=== PATIENT | female | born 1955 | race African-American/Black ===

== ENCOUNTER 2018-01-10 08:53 | Inpatient (IN) | payer OTHER ==
[2018-01-10 10:08] VITALS: BMI 18.3
--- NOTE | 2018-01-10 12:47 | HP ---
CIWA Score - CIWA Score Nausea/Vomitin Muscle Tremors: 3 Anxiety: 3 Agitation: 3 Paroxysmal Sweats: 1-Minimal Palms Moist Orientation: 3-Disoriented Date>2 days Tacttile Disturbances: 1-Very Mild Itch/Numbness Auditory Disturbances: 1-Very Mild Visual Disturbances: 0-None Headache: 2-Mild CIWA-Ar Total Score: 20 Admission ROS BHS - HPI Chief Complaint: i need help to stop drinking alcohol and cocaine Allergies/Adverse Reactions: Allergies Allergy/AdvReac Type Severity Reaction Status Date / Time penicillin V [Penicillin V] Allergy Unknown Rash Verified 01/10/18 09:51 History of Present Illness: this 62 years female with alcohol and cocaine dependence,seeking detox, withdrawal symptom,last detox 06/02/16 to 06/06/16 seen at [place] last night injury to left elbow with old scab seen at [facility] type 2 dm diet control hepatitis c bipolar disorder nicotine dependence longest sobriety 2 months Exam Limitations: No Limitations - Ebola screening Have you traveled outside of the country in the last 21 days: No (N) Have you had contact with anyone from an Ebola affected area: No Have you been sick,other than usual withdrawal symptoms: No Do you have a fever: No - Review of Systems Constitutional: Loss of Appetite, Malaise, Night Sweats, Changes in sleep, Weakness, Unintentional Wgt. Loss EENT: reports: Nose Congestion Respiratory: reports: No Symptoms reported Cardiac: reports: No Symptoms Reported GI: reports: Diarrhea, Nausea, Vomiting, Abdominal cramping : reports: No Symptoms Reported Musculoskeletal: reports: Back Pain, Muscle Pain Integumentary: reports: Dryness Neuro: reports: Headache, Tremors Endocrine: reports: No Symptoms Reported Hematology: reports: No Symptoms Reported Psychiatric: reports: No Sypmtoms Reported, Judgement Intact, Mood/Affect Appropiate, Orientated x3 (bipolar disorder) Patient History - Patient Medical History Hx Anemia: No Hx Asthma: Yes (Pt is on MDI) Hx Chronic Obstructive Pulmonary Disease (COPD): No Hx Cancer: No Hx Cardiac Disorders: No Hx Congestive Heart Failure: No Hx Hypertension: No Hx Hypercholesterolemia: No Hx Pacemaker: No HX Cerebrovascular Accident: No Hx Seizures: Yes (SEIZURE HISTORY RELATED TO ALCOHOL last 12/20/17) Hx Dementia: No Hx Diabetes: Yes (PATIENT TAKES INSULIN) Hx Gastrointestinal Disorders: No Hx Liver Disease: Yes Hx Genitourinary Disorders: No Hx Sexually Transmitted Disorders: Yes (gonorrhea) Hx Renal Disease (ESRD): No Hx Thyroid Disease: No Hx Human Immunodeficiency Virus (HIV): No Hx Hepatitis C: Yes (no treatment) Hx Depression: Yes Hx Suicide Attempt: No Hx Bipolar Disorder: Yes (on haldol injectio once a month) Hx Schizophrenia: No Other Medical History: no suicidal,no homicidal - Patient Surgical History Past Surgical History: Yes Hx Neurologic Surgery: No Hx Cataract Extraction: No Hx Cardiac Surgery: No Hx Lung Surgery: No Hx Breast Surgery: No Hx Breast Biopsy: No Hx Abdominal Surgery: Yes (TOTAL HYSTERECTOMY IN 1990 for fibroid) Hx Appendectomy: No Hx Cholecystectomy: No Hx Genitourinary Surgery: No Hx Section: No Hx Orthopedic Surgery: No Hx Hysterectomy: Yes Other Surgical History: TONSILLECTOMY at age 22 Anesthesia Reaction: No - PPD History Previous Implant?: Yes Documented Results: Negative w/proof Implanted On Prior [facility] Admission?: Yes Date: 02/29/16 Results: 0 MM PPD to be Administered?: Yes - Reproductive History Patient : No - Smoking Cessation Smoking history: Current every day smoker Have you smoked in the past 12 months: Yes Aproximately how many cigarettes per day: 20 Hx Chewing Tobacco Use: No Initiated information on smoking cessation: Yes 'Breaking Loose' booklet given: 01/10/18 - Substance & Tx. History Hx Alcohol Use: Yes Hx Substance Use: Yes Substance Use Type: Alcohol, Cocaine Hx Substance Use Treatment: Yes ([facility] 06/02/16 to 06/06/16) - Substances Abused Alcohol Route: Oral Frequency: Daily Amount used: 3 cans (24 ozs) beer Age of first use: 21 Date of Last Use: 01/10/18 Crack Route: Smoking Frequency: 1-2 times per week Amount used: $30 Age of first use: 24 Date of Last Use: 12/27/17 Family Disease History - Family Disease History Family Disease History: Other: Father (never met), Mother (alcohol ), Sister () Admission Physical Exam BHS - Vital Signs Vital Signs: Vital Signs - 24 hr 01/10/18 09:43 Temperature 97.1 F L Pulse Rate 79 Respiratory 16 Rate Blood Pressure 95/72 - Physical General Appearance: Yes: Moderate Distress, Tremorous, Irritable, Sweating, Anxious HEENTM: Yes: Normal ENT Inspection, TONIA, Pharynx Normal Respiratory: Yes: Lungs Clear, Normal Breath Sounds, No Respiratory Distress ( history of asthma) Neck: Yes: Within Normal Limits, Supple, Trachea in good position Breast: Yes: Breast Exam Deferred Cardiology: Yes: Within Normal Limits, S1, S2 Abdominal: Yes: Within Normal Limits, Normal Bowel Sounds, Non Tender, Soft, Surgical Scar Genitourinary: Yes: Within Normal Limits, Incontinient Back: Yes: Normal Inspection, Muscle Spasm Musculoskeletal: Yes: Back pain, Muscle Pain Extremities: Yes: Tremors Neurological: Yes: dat instructor II-XII NML intact, Fully Oriented, Alert, Motor Strength 5/5 Integumentary: Yes: Dry Lymphatic: Yes: Within Normal Limits - Diagnostic (1) Alcohol dependence with withdrawal Current Visit: No Status: Acute Qualifiers: Complication of substance-induced condition: uncomplicated Qualified Code(s ): F10.230 - Alcohol dependence with withdrawal, uncomplicated (2) Bipolar disorder Current Visit: Yes Status: Acute (3) Asthma Current Visit: No Status: Acute Qualifiers: Asthma severity: mild intermittent Asthma complication type: uncomplicated (4) Cocaine dependence Current Visit: No Status: Chronic (5) Incontinent of urine Current Visit: No Status: Chronic Qualifiers: Urinary Incontinence type: mixed stress and urge incontinence Qualified Code(s): N39.46 - Mixed incontinence (6) Frequent falls Current Visit: Yes Status: Acute (7) Weight loss Current Visit: Yes Status: Acute Cleared for Admission [facility] - Detox or Rehab [facility] Level of Care: Medically Managed Detox Regimen/Protocol: Librium [facility] Breath Alcohol Content Breath Alcohol Content: 0.154 Urine Pregancy Test - Result Urine Test Results: Negative- NO Line Present Urine Drug Screen - Results Drug Screen Negative: No Urine Drug Screen Results: BIJAN-Cocaine
[2018-01-10] MEDS ORDERED: MAGNESIUM CITRATE 300 ML BOTTLE PO PRN (13:00)
[2018-01-10] MEDS ORDERED: hydrOXYzine PAMOATE 25 MG CAPSULE (FP) PO PRN (13:00)
[2018-01-10] MEDS ORDERED: NICOTINE POLACRILEX 2 MG GUM BUC PRN (13:00)
[2018-01-10] MEDS ORDERED: MAGNESIUM HYDROX 2400MG/30ML ORAL SUSPENSION 30 ML CUP PO PRN (13:00)
[2018-01-10] MEDS ORDERED: IBUPROFEN 400 MG TABLET (FP) PO PRN (13:00)
[2018-01-10] MEDS ORDERED: MAG HYDROX/AL HYDROX/SIMETH 30 ML UNIT-DOSE CUP PO PRN (13:00)
[2018-01-10] MEDS ORDERED: guaiFENesin/D-METHORPHAN HB 10 ML UNIT-DOSE CUPS PO PRN (13:00)
[2018-01-10] MEDS ORDERED: MENTHOL/PHENOL 1 EACH UD MM PRN (13:00)
[2018-01-10] MEDS ORDERED: P-EPHED 60MG/TRIPROLIDI 2.5MG TABLET PO PRN (13:00)
[2018-01-10] MEDS ORDERED: ACETAMINOPHEN 325 MG TABLET (FP) PO PRN (13:00)
[2018-01-10] MEDS ORDERED: LOPERAMIDE HCL 2 MG CAPSULE PO PRN (13:00)
[2018-01-10] MEDS ORDERED: chlordiazePOXIDE HCL 25 MG CAPSULE PO PRN (13:00)
[2018-01-10] MEDS ORDERED: ALBUTEROL SO4 18 GM HFA INHALER IH PRN (13:04)
[2018-01-10] MEDS ORDERED: chlordiazePOXIDE HCL 25 MG CAPSULE PO ONE (13:50)
--- NOTE | 2018-01-10 14:43 | CONSULT ---
[facility] Psychiatric Consult - Data Date of interview: 01/10/18 Admission source: [facility] Identifying data: This is 62 years female, single, mother of three, living with relatives,on SSI, with history of Schizophrenia, Bipolar disorder, psychiatric hospitalization history, with alcohol and cocaine dependence,seeking detox reporting withdrawal symptoms. Substance Abuse History: this 62 years female with alcohol and cocaine dependence,seeking detox,withdrawal symptom,last detox 06/02/16 to 06/06/16. seen at [place] last night. injury to left elbow with old scab seen at [place]. type 2 dm diet control. hepatitis c. bipolar disorder. nicotine dependence. longest sobriety 2 months Medical History: Asthma, Weight loss, HepC+, head trauma history Psychiatric History: Patient reports to carry Bipolar Disorder, reports most recent psychiatric admission on about 5 years ago, reports currently stable on: Haldol Decanoate 100ml IM monthly. Haldol 5mg poqd. Trazodone 10-0mg po qhs. Reports last injection done in January 05 Physical/Sexual Abuse/Trauma History: Denies Additional Comment: Haldol Decanoate 100ml IM monthly. Haldol 5mg poqd. Trazodone 10-0mg po qhs Mental Status Exam - Mental Status Exam Alert and Oriented to: Place, Person Cognitive Function: Fair Patient Appearance: Unkempt Mood: Euthymic Affect: Inappropriate Patient Behavior: Cooperative Speech Pattern: Unclear Voice Loudness: Mildly Soft/Quiet Thought Process: Circumstantial Thought Disorder: Being Controlled Hallucinations: Denies Suicidal Ideation: Denies Homicidal Ideation: Denies Insight/Judgement: Fair Sleep: Difficulty falling asleep Appetite: Weight loss Muscle strength/Tone: Mild Hypotonicity Gait/Station: Deferred Additional Comments: Haldol Decanoate 100ml IM monthly. Haldol 5mg poqd. Trazodone 10-0mg po qhs Psychiatric Findings - Problem List ([place] 1, 2,3) (1) Bipolar disorder Current Visit: Yes Status: Acute (2) Weight loss Current Visit: Yes Status: Acute (3) Alcohol dependence Current Visit: No Status: Active (4) Alcohol dependence with withdrawal Current Visit: No Status: Acute Qualifiers: Complication of substance-induced condition: uncomplicated Qualified Code(s ): F10.230 - Alcohol dependence with withdrawal, uncomplicated (5) Cocaine dependence Current Visit: No Status: Chronic (6) Incontinent of urine Current Visit: No Status: Chronic Qualifiers: Urinary Incontinence type: mixed stress and urge incontinence Qualified Code(s): N39.46 - Mixed incontinence (7) Schizoaffective disorder Current Visit: No Status: Chronic - Initial Treatment Plan Initial Treatment Plan: Haldol Decanoate 100ml IM monthly last injection in January 05. Haldol 5mg poqd. Trazodone 10-0mg po qhs
[2018-01-10] MEDS: NICOTINE 21 MG/24 HOURS TOPICAL PATCH TD SCH (15:19)
[2018-01-10] MEDS: chlordiazePOXIDE HCL 25 MG CAPSULE PO SCH ×2 (17:27→22:22)
[2018-01-10] MEDS: HALOPERIDOL 5 MG TABLET (FP) PO SCH (17:28)
[2018-01-10 18:49] LABS: URINE APPEARANCE CLEAR; URINE BILIRUBIN NEGATIVE (<2.0 mg/dL); URINE BLOOD NEGATIVE (NEGATIVE); URINE COLOR LTYELLOW; URINE GLUCOSE (UA) NEGATIVE (NEGATIVE); URINE KETONE NEGATIVE (NEGATIVE); URINE NITRITE NEGATIVE (NEGATIVE); URINE PROTEIN NEGATIVE (NEGATIVE); URINE UROBILINOGEN NEGATIVE mg/dL (0.2-1.0)
[2018-01-10 19:03] LABS: URINE LEUK ESTERASE 1+ (NEGATIVE)
[2018-01-10 19:15] LABS: EPI CELLS RARE /HPF (FEW); URINE MUCUS RARE
[2018-01-10] MEDS ORDERED: MELATONIN 5 MG TABLETS PO PRN (22:00)
[2018-01-10] MEDS: traZODone HCL 100 MG TABLET (FP) PO SCH (22:22)
[2018-01-10] MEDS: THIAMINE HCL 100 MG TABLET (FP) PO SCH (22:22)
[2018-01-11] MEDS: chlordiazePOXIDE HCL 25 MG CAPSULE PO SCH ×4 (06:04→22:34)
[2018-01-11 10:15] LABS: HEMATOCRIT 37.3 % (32.4-45.2); HEMOGLOBIN 12.1 GM/dL (10.7-15.3); MCH 29.9 pg (25.7-33.7); MCHC 32.5 g/dl (32.0-36.0); MEAN CELL VOLUME 92.2 fl (80-96); MEAN PLT VOLUME 9.8 fl (7.5-11.1); PLATELET COUNT 251 K/MM3 (134-434); RBC 4.05 M/mm3 (3.60-5.2); RDW 14.6 % (11.6-15.6); WHITE BLOOD COUNT 7.8 K/mm3 (4.0-10.0)
--- NOTE | 2018-01-11 10:35 | PN ---
S CIWA - CIWA Score Nausea/Vomitin-Mild Nausea/No Vomiting Muscle Tremors: 4-Moderate,w/Arms Extend Anxiety: 4-Mod. Anxious/Guarded Agitation: 4-Moderately Restless Paroxysmal Sweats: 1-Minimal Palms Moist Orientation: 1-Uncertain about Date Tacttile Disturbances: 1-Very Mild Itch/Numbness Auditory Disturbances: 0-None Visual Disturbances: 0-None Headache: 0-None Present CIWA-Ar Total Score: 16 BHS Progress Note (SOAP) Subjective: sweat tremor trouble sleep at night anxiety restlessness Objective: 01/11/18 10:36 Vital Signs Temperature 98.2 F 01/11/18 09:19 Pulse Rate 91 H 01/11/18 09:19 Respiratory Rate 18 01/11/18 09:19 Blood Pressure 98/64 01/11/18 09:19 O2 Sat by Pulse Oximetry (%) Laboratory Last Values WBC 7.8 K/mm3 (4.0-10.0) 01/11/18 06:00 RBC 4.05 M/mm3 (3.60-5.2) 01/11/18 06:00 Hgb 12.1 GM/dL (10.7-15.3) 01/11/18 06:00 Hct 37.3 % (32.4-45.2) 01/11/18 06:00 MCV 92.2 fl (80-96) 01/11/18 06:00 MCH 29.9 pg (25.7-33.7) 01/11/18 06:00 MCHC 32.5 g/dl (32.0-36.0) 01/11/18 06:00 RDW 14.6 % (11.6-15.6) 01/11/18 06:00 Plt Count 251 K/MM3 (134-434) D 01/11/18 06:00 MPV 9.8 fl (7.5-11.1) D 01/11/18 06:00 POC Glucometer 113 UNITS (80-120) 01/11/18 06:16 Urine Color Ltyellow 01/10/18 15:00 Urine Appearance Clear 01/10/18 15:00 Urine pH 5.0 (5.0-8.0) 01/10/18 15:00 Ur Specific [place] 1.008 (1.001-1.035) 01/10/18 15:00 Urine Protein Negative (NEGATIVE) 01/10/18 15:00 Urine Glucose (UA) Negative (NEGATIVE) 01/10/18 15:00 Urine Ketones Negative (NEGATIVE) 01/10/18 15:00 Urine Blood Negative (NEGATIVE) 01/10/18 15:00 Urine Nitrite Negative (NEGATIVE) 01/10/18 15:00 Urine Bilirubin Negative (<2.0 mg/dL) 01/10/18 15:00 Urine Urobilinogen Negative mg/dL (0.2-1.0) 01/10/18 15:00 Ur Leukocyte Esterase 1+ (NEGATIVE) H 01/10/18 15:00 Urine WBC (Auto) 4 /hpf (3-5) 01/10/18 15:00 Urine RBC (Auto) <1 /hpf (0-3) 01/10/18 15:00 Ur Epithelial Cells Rare /HPF (FEW) 01/10/18 15:00 Urine Mucus Rare 01/10/18 15:00 lab noted Assessment: 01/11/18 10:36 alcohol withdrawal sx Plan: continue detox cane for ambulation bacitracin ointment on left elbow
[2018-01-11] MEDS ORDERED: BACITRACIN 0.9 GM PACKET TP ONE (10:38)
[2018-01-11] MEDS: HALOPERIDOL 5 MG TABLET (FP) PO SCH (10:49)
[2018-01-11] MEDS: PRENATAL VITAMINS W/ FOLIC ACID TABLET (FP) PO SCH (10:49)
[2018-01-11] MEDS: NICOTINE 21 MG/24 HOURS TOPICAL PATCH TD SCH (10:49)
[2018-01-11 12:00] LABS: ALBUMIN 3.4 g/dl (3.4-5.0); ANION GAP 10 (8-16); BLOOD UREA NITROGEN 7 mg/dL (7-18); CALCIUM 8.5 mg/dL (8.5-10.1); CHLORIDE 109 mmol/L (98-107); CO2 24 mmol/L (21-32); GLUCOSE,RANDOM 85 mg/dL (74-106); POTASSIUM 4.2 mmol/L (3.5-5.1); SGPT/ALT 108 U/L (12-78); SODIUM 143 mmol/L (136-145)
[2018-01-11 12:03] LABS: ALK PHOS 70 U/L (45-117); BILIRUBIN,TOTAL 0.3 mg/dL (0.2-1.0); CREATININE 0.6 mg/dL (0.55-1.02); SGOT/AST 128 U/L (15-37); TOT PROT 8.2 g/dl (6.4-8.2)
--- NOTE | 2018-01-11 13:30 | EKG ---
Test Reason : Blood Pressure : / mmHG Vent. Rate : 075 BPM Atrial Rate : 075 BPM P-R Int : 148 ms QRS Dur : 090 ms QT Int : 418 ms P-R-T Axes : 065 056 028 degrees QTc Int : 466 ms POOR DATA QUALITY, INTERPRETATION MAY BE ADVERSELY AFFECTED NORMAL SINUS RHYTHM NONSPECIFIC T WAVE ABNORMALITY ABNORMAL ECG WHEN COMPARED WITH ECG OF 05-JUN-2016 10:14, NO SIGNIFICANT CHANGE WAS FOUND Confirmed by MD MAYKEL, ANA PAULA ([id number]) on 01/11/2018 1:30:13 PM Referred By: Confirmed By:ANA PAULA BRAR MD
[2018-01-11] MEDS: THIAMINE HCL 100 MG TABLET (FP) PO SCH (22:33)
[2018-01-11] MEDS: traZODone HCL 100 MG TABLET (FP) PO SCH (22:34)
[2018-01-12] MEDS: chlordiazePOXIDE HCL 25 MG CAPSULE PO SCH ×2 (05:43→10:28)
[2018-01-12] MEDS: NICOTINE 21 MG/24 HOURS TOPICAL PATCH TD SCH (10:27)
[2018-01-12] MEDS: PRENATAL VITAMINS W/ FOLIC ACID TABLET (FP) PO SCH (10:27)
[2018-01-12] MEDS: HALOPERIDOL 5 MG TABLET (FP) PO SCH (10:27)
--- NOTE | 2018-01-12 11:06 | PN ---
S CIWA - CIWA Score Nausea/Vomitin-No Nausea/No Vomiting Muscle Tremors: 4-Moderate,w/Arms Extend Anxiety: 3 Agitation: 3 Paroxysmal Sweats: 1-Minimal Palms Moist Orientation: 0-Oriented Tacttile Disturbances: 1-Very Mild Itch/Numbness Auditory Disturbances: 0-None Visual Disturbances: 0-None Headache: 0-None Present CIWA-Ar Total Score: 12 BHS Progress Note (SOAP) Subjective: sweat tremor restlessness anxiousness Objective: 01/12/18 11:07 Vital Signs Temperature 97.5 F L 01/12/18 11:03 Pulse Rate 69 01/12/18 11:03 Respiratory Rate 18 01/12/18 11:03 Blood Pressure 98/61 01/12/18 11:03 O2 Sat by Pulse Oximetry (%) Laboratory Last Values WBC 7.8 K/mm3 (4.0-10.0) 01/11/18 06:00 RBC 4.05 M/mm3 (3.60-5.2) 01/11/18 06:00 Hgb 12.1 GM/dL (10.7-15.3) 01/11/18 06:00 Hct 37.3 % (32.4-45.2) 01/11/18 06:00 MCV 92.2 fl (80-96) 01/11/18 06:00 MCH 29.9 pg (25.7-33.7) 01/11/18 06:00 MCHC 32.5 g/dl (32.0-36.0) 01/11/18 06:00 RDW 14.6 % (11.6-15.6) 01/11/18 06:00 Plt Count 251 K/MM3 (134-434) D 01/11/18 06:00 MPV 9.8 fl (7.5-11.1) D 01/11/18 06:00 Sodium 143 mmol/L (136-145) 01/11/18 06:00 Potassium 4.2 mmol/L (3.5-5.1) 01/11/18 06:00 Chloride 109 mmol/L (98-107) H 01/11/18 06:00 Carbon Dioxide 24 mmol/L (21-32) 01/11/18 06:00 Anion Gap 10 (8-16) 01/11/18 06:00 BUN 7 mg/dL (7-18) 01/11/18 06:00 Creatinine 0.6 mg/dL (0.55-1.02) 01/11/18 06:00 Creat Clearance w eGFR > 60 (>60) 01/11/18 06:00 POC Glucometer 87 UNITS (80-120) 01/12/18 05:42 Random Glucose 85 mg/dL (74-106) 01/11/18 06:00 Calcium 8.5 mg/dL (8.5-10.1) 01/11/18 06:00 Total Bilirubin 0.3 mg/dL (0.2-1.0) 01/11/18 06:00 AST 128 U/L (15-37) H 01/11/18 06:00 ALT 108 U/L (12-78) H 01/11/18 06:00 Alkaline Phosphatase 70 U/L (45-117) 01/11/18 06:00 Total Protein 8.2 g/dl (6.4-8.2) 01/11/18 06:00 Albumin 3.4 g/dl (3.4-5.0) 01/11/18 06:00 Urine Color Ltyellow 01/10/18 15:00 Urine Appearance Clear 01/10/18 15:00 Urine pH 5.0 (5.0-8.0) 01/10/18 15:00 Ur Specific [place] 1.008 (1.001-1.035) 01/10/18 15:00 Urine Protein Negative (NEGATIVE) 01/10/18 15:00 Urine Glucose (UA) Negative (NEGATIVE) 01/10/18 15:00 Urine Ketones Negative (NEGATIVE) 01/10/18 15:00 Urine Blood Negative (NEGATIVE) 01/10/18 15:00 Urine Nitrite Negative (NEGATIVE) 01/10/18 15:00 Urine Bilirubin Negative (<2.0 mg/dL) 01/10/18 15:00 Urine Urobilinogen Negative mg/dL (0.2-1.0) 01/10/18 15:00 Ur Leukocyte Esterase 1+ (NEGATIVE) H 01/10/18 15:00 Urine WBC (Auto) 4 /hpf (3-5) 01/10/18 15:00 Urine RBC (Auto) <1 /hpf (0-3) 01/10/18 15:00 Ur Epithelial Cells Rare /HPF (FEW) 01/10/18 15:00 Urine Mucus Rare 01/10/18 15:00 lab noted Assessment: 01/12/18 11:07 withdrawal sx Plan: continue detox
[2018-01-12] MEDS: chlordiazePOXIDE 5 MG CAPSULE PO SCH ×2 (18:52→22:31)
[2018-01-12] MEDS: THIAMINE HCL 100 MG TABLET (FP) PO SCH (22:31)
[2018-01-12] MEDS: traZODone HCL 100 MG TABLET (FP) PO SCH (22:31)
[2018-01-13] MEDS: chlordiazePOXIDE 5 MG CAPSULE PO SCH ×2 (07:06→10:41)
--- NOTE | 2018-01-13 09:31 | PN ---
BHS Progress Note (SOAP) Subjective: felling better no tremor less sweat able to sleep better at night Objective: 01/13/18 09:29 Vital Signs Temperature 97.7 F 01/13/18 09:15 Pulse Rate 96 H 01/13/18 09:15 Respiratory Rate 18 01/13/18 09:15 Blood Pressure 114/63 01/13/18 09:15 O2 Sat by Pulse Oximetry (%) Laboratory Last Values WBC 7.8 K/mm3 (4.0-10.0) 01/11/18 06:00 RBC 4.05 M/mm3 (3.60-5.2) 01/11/18 06:00 Hgb 12.1 GM/dL (10.7-15.3) 01/11/18 06:00 Hct 37.3 % (32.4-45.2) 01/11/18 06:00 MCV 92.2 fl (80-96) 01/11/18 06:00 MCH 29.9 pg (25.7-33.7) 01/11/18 06:00 MCHC 32.5 g/dl (32.0-36.0) 01/11/18 06:00 RDW 14.6 % (11.6-15.6) 01/11/18 06:00 Plt Count 251 K/MM3 (134-434) D 01/11/18 06:00 MPV 9.8 fl (7.5-11.1) D 01/11/18 06:00 Sodium 143 mmol/L (136-145) 01/11/18 06:00 Potassium 4.2 mmol/L (3.5-5.1) 01/11/18 06:00 Chloride 109 mmol/L (98-107) H 01/11/18 06:00 Carbon Dioxide 24 mmol/L (21-32) 01/11/18 06:00 Anion Gap 10 (8-16) 01/11/18 06:00 BUN 7 mg/dL (7-18) 01/11/18 06:00 Creatinine 0.6 mg/dL (0.55-1.02) 01/11/18 06:00 Creat Clearance w eGFR > 60 (>60) 01/11/18 06:00 POC Glucometer 86 UNITS (80-120) 01/13/18 06:53 Random Glucose 85 mg/dL (74-106) 01/11/18 06:00 Calcium 8.5 mg/dL (8.5-10.1) 01/11/18 06:00 Total Bilirubin 0.3 mg/dL (0.2-1.0) 01/11/18 06:00 AST 128 U/L (15-37) H 01/11/18 06:00 ALT 108 U/L (12-78) H 01/11/18 06:00 Alkaline Phosphatase 70 U/L (45-117) 01/11/18 06:00 Total Protein 8.2 g/dl (6.4-8.2) 01/11/18 06:00 Albumin 3.4 g/dl (3.4-5.0) 01/11/18 06:00 Urine Color Ltyellow 01/10/18 15:00 Urine Appearance Clear 01/10/18 15:00 Urine pH 5.0 (5.0-8.0) 01/10/18 15:00 Ur Specific [place] 1.008 (1.001-1.035) 01/10/18 15:00 Urine Protein Negative (NEGATIVE) 01/10/18 15:00 Urine Glucose (UA) Negative (NEGATIVE) 01/10/18 15:00 Urine Ketones Negative (NEGATIVE) 01/10/18 15:00 Urine Blood Negative (NEGATIVE) 01/10/18 15:00 Urine Nitrite Negative (NEGATIVE) 01/10/18 15:00 Urine Bilirubin Negative (<2.0 mg/dL) 01/10/18 15:00 Urine Urobilinogen Negative mg/dL (0.2-1.0) 01/10/18 15:00 Ur Leukocyte Esterase 1+ (NEGATIVE) H 01/10/18 15:00 Urine WBC (Auto) 4 /hpf (3-5) 01/10/18 15:00 Urine RBC (Auto) <1 /hpf (0-3) 01/10/18 15:00 Ur Epithelial Cells Rare /HPF (FEW) 01/10/18 15:00 Urine Mucus Rare 01/10/18 15:00 RPR Titer Nonreactive (NONREACTIVE) 01/11/18 06:00 HIV 1&2 Antibody Screen Negative 01/10/18 06:00 HIV P24 Antigen Negative 01/10/18 06:00 lab noted Assessment: 01/13/18 09:29 mild withdrawal sx Plan: medically supervised detox discuss addiction related health issues and follow up with pulmonary provider for asthma
--- NOTE | 2018-01-13 09:37 | PN ---
Psychiatric Progress Note Vital Signs: Vital Signs Period Temp Pulse Resp BP Sys/Nunez Pulse Ox Last 24 Hr 97.5 F-98.2 F 69-96 16-19 95-115/56-65 Date of Session: 01/13/18 Chief Complaint:: OVERSEDATED HPI: As per nursing report patient is oversedated with today am Current Medications: Active Medications Generic Name Dose Route Start Last Admin Trade Name Freq PRN Reason Stop Dose Admin Acetaminophen 650 mg 01/10/18 13:00 Tylenol - PO Q4H PRN FEVER Al Hydroxide/Mg Hydroxide 30 ml 01/10/18 13:00 Mylanta Oral Suspension - PO Q6H PRN DYSPEPSIA Albuterol Sulfate 2 puff 01/10/18 13:04 Ventolin Hfa Inhaler - IH Q4H PRN SHORT OF BREATH/WHEEZING Chlordiazepoxide HCl 15 mg 01/12/18 17:00 01/13/18 07:06 Librium - PO 01/13/18 11:01 15 mg [id number] ARIANA Administration Chlordiazepoxide HCl 25 mg 01/10/18 13:00 Librium - PO 01/13/18 12:59 Q4H PRN WITHDRAWAL(CONT SUBST) Chlordiazepoxide HCl 10 mg 01/13/18 17:00 Librium - PO 01/14/18 11:01 [id number] ARIANA Eucalyptus/Menthol/Phenol/Sorbitol 1 each 01/10/18 13:00 Cepastat Lozenge - MM Q4H PRN SORE THROAT Guaifenesin 10 ml 01/10/18 13:00 Robitussin Dm - PO Q6H PRN COUGH Hydroxyzine Pamoate 25 mg 01/10/18 13:00 Vistaril - PO Q4H PRN AGITATION Ibuprofen 400 mg 01/10/18 13:00 Motrin - PO Q6H PRN PAIN LEVEL 4-6 Loperamide HCl 4 mg 01/10/18 13:00 Imodium - PO Q6H PRN DIARRHEA Magnesium Citrate 300 ml 01/10/18 13:00 Citroma - PO Q48H PRN CONSTIPATION Magnesium Hydroxide 30 ml 01/10/18 13:00 Milk Of Magnesia - PO DAILY PRN CONSTIPATION Melatonin 5 mg 01/10/18 22:00 Melatonin PO HS PRN INSOMNIA Nicotine 21 mg 01/10/18 13:50 01/12/18 10:27 Nicoderm Patch - TD 21 mg DAILY ARIANA Administration Nicotine Polacrilex 2 mg 01/10/18 13:00 Nicorette Gum - BUC Q2H PRN NICOTINE REPLACEMENT RX Multivit/Folic Acid/Iron 1 tab 01/11/18 10:00 01/12/18 10:27 Vitamins (Sjr) - PO 1 tab DAILY ARIANA Administration Pseudoephedrine/Triprolidine 1 combo 01/10/18 13:00 Actifed - PO TID PRN NASAL CONGESTION Thiamine HCl 100 mg 01/10/18 22:00 01/12/18 22:31 Vitamin B1 - PO 100 mg HS ARIANA Administration Medication(s) Change(s): Hlod psychiatric medications Provider note:: As per chart patient on Haldol Decanoate 100ml since January 05, was given 01/12/18 Trazodone 100mg po qhs as per patient request and found sedated in am 01/13/18. Rec: hold psychiatric medications Mental Status Exam - Mental Status Exam Alert and Oriented to: Person Cognitive Function: Fair Patient Appearance: Unkempt Mood: Sad Affect: Flat Patient Behavior: Cooperative Speech Pattern: Delayed Voice Loudness: Moderately Soft/Quiet Thought Process: Goal Oriented Thought Disorder: Being Controlled Hallucinations: Denies Suicidal Ideation: Denies Homicidal Ideation: Denies Insight/Judgement: Fair Sleep: Fair Appetite: Weight loss Muscle strength/Tone: Moderate Hypotonicity Gait/Station: Shuffling Additional Comments: Hold psychiatric medications Psychiatric Treatment Plan - Problem List (1) Bipolar disorder Current Visit: Yes (2) Weight loss Current Visit: Yes (3) Alcohol dependence Current Visit: No (4) Alcohol dependence with withdrawal Current Visit: No Qualifiers: Complication of substance-induced condition: uncomplicated Qualified Code(s ): F10.230 - Alcohol dependence with withdrawal, uncomplicated (5) Cocaine dependence Current Visit: No (6) Incontinent of urine Current Visit: No Qualifiers: Urinary Incontinence type: mixed stress and urge incontinence Qualified Code(s): N39.46 - Mixed incontinence (7) Schizoaffective disorder Current Visit: No Initial treatment plan: Hold psychiatric medications. Pharmacy contacted, dischsrge psychiatric medicationsn orderes canceled.
[2018-01-13] MEDS: PRENATAL VITAMINS W/ FOLIC ACID TABLET (FP) PO SCH (10:41)
[2018-01-13] MEDS: NICOTINE 21 MG/24 HOURS TOPICAL PATCH TD SCH (10:41)
[2018-01-13] MEDS: chlordiazePOXIDE HCL 10 MG CAPSULE PO SCH ×2 (17:15→22:36)
[2018-01-13] MEDS: THIAMINE HCL 100 MG TABLET (FP) PO SCH (22:36)
[2018-01-14] MEDS: chlordiazePOXIDE HCL 10 MG CAPSULE PO SCH (06:29)
[2018-01-14 07:05] VITALS: BP 137/80; PULSE 85; TEMP 97.3
--- NOTE | 2018-01-14 09:23 | PN ---
S Progress Note (SOAP) Subjective: alert,no complaint Objective: 01/14/18 09:22 Vital Signs Temperature 97.3 F L 01/14/18 06:00 Pulse Rate 85 01/14/18 06:00 Respiratory Rate 18 01/14/18 06:00 Blood Pressure 137/80 01/14/18 06:00 O2 Sat by Pulse Oximetry (%) Assessment: 01/14/18 09:22 detox completed,no withdrawal symptom Plan: discharge today,follow up with after care program as arrangement
--- NOTE | 2018-01-14 09:29 | DS ---
[facility] Detox Discharge Summary Admission Date: 01/10/18 Discharge Date: 01/14/18 - History Present History: Alcohol Dependence, Cocaine Dependence Additional Comments: follow up with after care program as arrangement Pertinent Past History: asthma bipolar disorder incontinence of urine - Physical Exam Results Vital Signs: Vital Signs Temperature 97.3 F L 01/14/18 06:00 Pulse Rate 85 01/14/18 06:00 Respiratory Rate 18 01/14/18 06:00 Blood Pressure 137/80 01/14/18 06:00 O2 Sat by Pulse Oximetry (%) Pertinent Admission Physical Exam Findings: withdrawal signs and symptom Vital Signs Temperature 97.3 F L 01/14/18 06:00 Pulse Rate 85 01/14/18 06:00 Respiratory Rate 18 01/14/18 06:00 Blood Pressure 137/80 01/14/18 06:00 O2 Sat by Pulse Oximetry (%) Laboratory Last Values WBC 7.8 K/mm3 (4.0-10.0) 01/11/18 06:00 RBC 4.05 M/mm3 (3.60-5.2) 01/11/18 06:00 Hgb 12.1 GM/dL (10.7-15.3) 01/11/18 06:00 Hct 37.3 % (32.4-45.2) 01/11/18 06:00 MCV 92.2 fl (80-96) 01/11/18 06:00 MCH 29.9 pg (25.7-33.7) 01/11/18 06:00 MCHC 32.5 g/dl (32.0-36.0) 01/11/18 06:00 RDW 14.6 % (11.6-15.6) 01/11/18 06:00 Plt Count 251 K/MM3 (134-434) D 01/11/18 06:00 MPV 9.8 fl (7.5-11.1) D 01/11/18 06:00 Sodium 143 mmol/L (136-145) 01/11/18 06:00 Potassium 4.2 mmol/L (3.5-5.1) 01/11/18 06:00 Chloride 109 mmol/L (98-107) H 01/11/18 06:00 Carbon Dioxide 24 mmol/L (21-32) 01/11/18 06:00 Anion Gap 10 (8-16) 01/11/18 06:00 BUN 7 mg/dL (7-18) 01/11/18 06:00 Creatinine 0.6 mg/dL (0.55-1.02) 01/11/18 06:00 Creat Clearance w eGFR > 60 (>60) 01/11/18 06:00 POC Glucometer 109 UNITS (80-120) 01/14/18 06:09 Random Glucose 85 mg/dL (74-106) 01/11/18 06:00 Calcium 8.5 mg/dL (8.5-10.1) 01/11/18 06:00 Total Bilirubin 0.3 mg/dL (0.2-1.0) 01/11/18 06:00 AST 128 U/L (15-37) H 01/11/18 06:00 ALT 108 U/L (12-78) H 01/11/18 06:00 Alkaline Phosphatase 70 U/L (45-117) 01/11/18 06:00 Total Protein 8.2 g/dl (6.4-8.2) 01/11/18 06:00 Albumin 3.4 g/dl (3.4-5.0) 01/11/18 06:00 Urine Color Ltyellow 01/10/18 15:00 Urine Appearance Clear 01/10/18 15:00 Urine pH 5.0 (5.0-8.0) 01/10/18 15:00 Ur Specific [place] 1.008 (1.001-1.035) 01/10/18 15:00 Urine Protein Negative (NEGATIVE) 01/10/18 15:00 Urine Glucose (UA) Negative (NEGATIVE) 01/10/18 15:00 Urine Ketones Negative (NEGATIVE) 01/10/18 15:00 Urine Blood Negative (NEGATIVE) 01/10/18 15:00 Urine Nitrite Negative (NEGATIVE) 01/10/18 15:00 Urine Bilirubin Negative (<2.0 mg/dL) 01/10/18 15:00 Urine Urobilinogen Negative mg/dL (0.2-1.0) 01/10/18 15:00 Ur Leukocyte Esterase 1+ (NEGATIVE) H 01/10/18 15:00 Urine WBC (Auto) 4 /hpf (3-5) 01/10/18 15:00 Urine RBC (Auto) <1 /hpf (0-3) 01/10/18 15:00 Ur Epithelial Cells Rare /HPF (FEW) 01/10/18 15:00 Urine Mucus Rare 01/10/18 15:00 RPR Titer Nonreactive (NONREACTIVE) 01/11/18 06:00 HIV 1&2 Antibody Screen Negative 01/10/18 06:00 HIV P24 Antigen Negative 01/10/18 06:00 - Treatment Hospital Course: Detox Protocol Followed, Detoxed Safely, Responded well, Discharged Condition Good Patient has Accepted a Rehab Referral to: declined - Medication Discharge Medications: Ambulatory Orders Haloperidol Decanoate [Haldol Decanoate 100] 100 mg IM MONTHLY 06/02/16 Haloperidol [Haldol -] 5 mg PO DAILY 01/10/18 Haloperidol [Haldol -] 5 mg PO DAILY #30 tablet 01/10/18 Insulin Sliding Scale [Novolog Vial Sliding Scale -] 0 units SQ DAILY 01/10/18 traZODone HCL [Desyrel -] 100 mg PO HS #30 tablet 01/10/18 Albuterol Sulfate Inhaler - [Ventolin HFA Inhaler -] 2 puff IH Q4H PRN #1 inhaler 01/13/18 - Diagnosis (1) Alcohol dependence with withdrawal Status: Acute Qualifiers: Complication of substance-induced condition: uncomplicated Qualified Code(s ): F10.230 - Alcohol dependence with withdrawal, uncomplicated (2) Bipolar disorder Status: Acute (3) Asthma Status: Acute Qualifiers: Asthma severity: mild intermittent Asthma complication type: uncomplicated (4) Cocaine dependence Status: Chronic (5) Incontinent of urine Status: Chronic Qualifiers: Urinary Incontinence type: mixed stress and urge incontinence Qualified Code(s): N39.46 - Mixed incontinence (6) Frequent falls Status: Acute (7) Weight loss Status: Acute - AMA Did Patient Leave Against Medical Advice: No
== END 2018-01-14 07:24 | disposition home or self-care (01) | DRG 774 ==
LOC: YASAS 08:53 → Y6N 13:01
PROVIDERS: ADMIT Surgery; ATTEND Surgery
PROC: HZ2ZZZZ Detoxification Services for Substance Abuse Treatment (ICD-10-PCS; principal; 2018-01-10)
DX: F10.230 Alcohol dependence with withdrawal, uncomplicated (principal); F14.20 Cocaine dependence, uncomplicated; F17.210 Nicotine dependence, cigarettes, uncomplicated; F31.9 Bipolar disorder, unspecified; F25.9 Schizoaffective disorder, unspecified; J45.20 Mild intermittent asthma, uncomplicated; N39.46 Mixed incontinence; R29.6 Repeated falls; E11.9 Type 2 diabetes mellitus without complications; B18.2 Chronic viral hepatitis C; Z90.710 Acquired absence of both cervix and uterus; Z79.4 Long term (current) use of insulin; Z86.69 Personal history of other diseases of the nervous system and sense organs; Z88.0 Allergy status to penicillin; Z87.898 Personal history of other specified conditions; Z87.42 Personal history of other diseases of the female genital tract
CPT/HCPCS: 36415; 80053; 81003; 81015; 82962; 85027; 86593; 87389; 93005; 93010

== ENCOUNTER 2018-06-12 09:14 | Inpatient (IN) | payer OTHER ==
[2018-06-12 09:53] VITALS: BMI 18.3
--- NOTE | 2018-06-12 10:46 | HP ---
CIWA Score - CIWA Score Nausea/Vomitin-Mild Nausea/No Vomiting Muscle Tremors: 3 Anxiety: 2 Agitation: 2 Paroxysmal Sweats: 3 Orientation: 1-Uncertain about Date Tacttile Disturbances: 1-Very Mild Itch/Numbness Auditory Disturbances: 0-None Visual Disturbances: 0-None Headache: 0-None Present CIWA-Ar Total Score: 13 Admission ROS BHS - HPI Chief Complaint: "I need help from the drinking and drugs" Allergies/Adverse Reactions: Allergies Allergy/AdvReac Type Severity Reaction Status Date / Time penicillin V [Penicillin V] Allergy Unknown Rash Verified 06/12/18 10:02 History of Present Illness: 62 y/o female with a long hx of addiction presents requesting detox from alcohol and crack cocaine. Pt was told that we do not offer crack detox here and verbalized understanding. Pt is known to this center and was last here in January. Pt states she was at [facility] last night for alcohol related issue from where she came here. Utox positive for methadone but pt denies taking prescribed nor street methadone Denies past or current SI/HI Hx of Asthma, DM 2, Bipolar, Hep C Exam Limitations: No Limitations - Ebola screening Have you traveled outside of the country in the last 21 days: No Have you had contact with anyone from an Ebola affected area: No Have you been sick,other than usual withdrawal symptoms: No Do you have a fever: No - Review of Systems Constitutional: Loss of Appetite, Changes in sleep, Unintentional Wgt. Loss EENT: reports: Blurred Vision, Dental Problems (missing all teeth) Respiratory: reports: No Symptoms reported Cardiac: reports: No Symptoms Reported GI: reports: No Symptoms Reported : reports: Incontinence (Urinal and Bowel) Musculoskeletal: reports: No Symptoms Reported Integumentary: reports: No Symptoms Reported Neuro: reports: Headache, Tremors Endocrine: reports: No Symptoms Reported Hematology: reports: No Symptoms Reported Psychiatric: reports: No Sypmtoms Reported Other Systems: Reviewed and Negative Patient History - Patient Medical History Hx Anemia: No Hx Asthma: Yes (Pt is on MDI) Hx Chronic Obstructive Pulmonary Disease (COPD): No Hx Cancer: No Hx Cardiac Disorders: No Hx Congestive Heart Failure: No Hx Hypertension: No Hx Hypercholesterolemia: No Hx Pacemaker: No HX Cerebrovascular Accident: No Hx Seizures: Yes (SEIZURE HISTORY RELATED TO ALCOHOL last 12/20/17) Hx Dementia: No Hx Diabetes: Yes Hx Gastrointestinal Disorders: No Hx Liver Disease: Yes Hx Genitourinary Disorders: No Hx Sexually Transmitted Disorders: Yes (gonorrhea x "2-3" yrs ago) Hx Renal Disease (ESRD): No Hx Thyroid Disease: No Hx Human Immunodeficiency Virus (HIV): No Hx Hepatitis C: Yes (no treatment) Hx Depression: Yes Hx Suicide Attempt: No Hx Bipolar Disorder: Yes (on haldol injection once a month) Hx Schizophrenia: No - Patient Surgical History Past Surgical History: Yes Hx Neurologic Surgery: No Hx Cataract Extraction: No Hx Cardiac Surgery: No Hx Lung Surgery: No Hx Breast Surgery: No Hx Breast Biopsy: No Hx Abdominal Surgery: Yes (TOTAL HYSTERECTOMY IN 1990 for fibroid) Hx Appendectomy: No Hx Cholecystectomy: No Hx Genitourinary Surgery: No Hx Section: No Hx Orthopedic Surgery: No Hx Hysterectomy: Yes Other Surgical History: TONSILLECTOMY at age 22 Anesthesia Reaction: No - PPD History Previous Implant?: Yes Documented Results: Negative w/proof Implanted On Prior [facility] Admission?: Yes Date: 01/12/18 Results: negative PPD to be Administered?: No - Reproductive History Patient is a Female of Child Bearing Age (11 -55 yrs old): No Patient : No - Smoking Cessation Smoking history: Current every day smoker Have you smoked in the past 12 months: Yes Aproximately how many cigarettes per day: 10 Cigars Per Day: 0 Hx Chewing Tobacco Use: No Initiated information on smoking cessation: Yes 'Breaking Loose' booklet given: 06/12/18 - Substance & Tx. History Hx Alcohol Use: Yes Hx Substance Use: Yes Substance Use Type: Alcohol, Cocaine Hx Substance Use Treatment: Yes - Substances Abused Alcohol Route: Oral Frequency: 3-6 times per week Amount used: 1 pint of E&J, and 3 24oz cans of beer Age of first use: 21 Date of Last Use: 06/11/18 Crack Route: Smoking Frequency: 3-6 times per week Amount used: $50 Age of first use: 26 Date of Last Use: 06/11/18 Family Disease History - Family Disease History Family Disease History: Other: Father (never met), Mother (alcohol ), Sister () Admission Physical Exam BHS - Vital Signs Vital Signs: Vital Signs - 24 hr 06/12/18 09:48 Temperature 97.4 F L Pulse Rate 71 Respiratory 16 Rate Blood Pressure 126/76 - Physical General Appearance: Yes: Disheveled, Mild Distress, Cachetic HEENTM: Yes: Other (no teeth) Respiratory: Yes: No Respiratory Distress, No Accessory Muscle Use Neck: Yes: No masses,lesions,Nodules, Trachea in good position Breast: Yes: Breast Exam Deferred Cardiology: Yes: Regular Rate Abdominal: Yes: Non Tender, Soft, Distended Genitourinary: Yes: Vaginal Discharge (not seen at intake) Back: Yes: Normal Inspection Musculoskeletal: Yes: full range of Motion, Other (limps, states she has arthritis on the L knee) Extremities: Yes: Normal Capillary Refill, Normal Inspection Neurological: Yes: Fully Oriented, Alert Integumentary: Yes: Normal Color, Warm Lymphatic: Yes: Within Normal Limits - Diagnostic (1) Alcohol dependence, uncomplicated Current Visit: Yes Status: Acute (2) Cocaine dependence Current Visit: No Status: Chronic (3) Nicotine dependence Current Visit: Yes Status: Chronic (4) Hx of hepatitis C Current Visit: Yes Status: Chronic (5) Arthritis of knee, left Current Visit: Yes Status: Chronic (6) DM (diabetes mellitus) Current Visit: Yes Status: Chronic (7) Asthma Current Visit: Yes Status: Chronic Qualifiers: Asthma severity: mild intermittent Asthma complication type: uncomplicated (8) Frequent falls Current Visit: No Status: Chronic (9) Incontinent of urine Current Visit: No Status: Chronic Qualifiers: Urinary Incontinence type: mixed stress and urge incontinence Qualified Code(s): N39.46 - Mixed incontinence Cleared for Admission [facility] - Detox or Rehab [facility] Level of Care: Medically Managed Detox Regimen/Protocol: Librium [facility] Breath Alcohol Content Breath Alcohol Content: 0.015 Urine Pregancy Test - Result Urine Test Results: Negative- NO Line Present Urine Drug Screen - Results Drug Screen Negative: No Urine Drug Screen Results: BIJAN-Cocaine, MTD-Methadone
[2018-06-12] MEDS ORDERED: MAGNESIUM CITRATE 300 ML BOTTLE PO PRN (11:08)
[2018-06-12] MEDS ORDERED: LOPERAMIDE HCL 2 MG CAPSULE PO PRN (11:08)
[2018-06-12] MEDS ORDERED: MAG HYDROX/AL HYDROX/SIMETH 30 ML UNIT-DOSE CUP PO PRN (11:08)
[2018-06-12] MEDS ORDERED: MAGNESIUM HYDROX 2400MG/30ML ORAL SUSPENSION 30 ML CUP PO PRN (11:08)
[2018-06-12] MEDS ORDERED: IBUPROFEN 400 MG TABLET (FP) PO PRN (11:08)
[2018-06-12] MEDS ORDERED: ACETAMINOPHEN 325 MG TABLET (FP) PO PRN (11:08)
[2018-06-12] MEDS ORDERED: MENTHOL/PHENOL 1 EACH UD MM PRN (11:08)
[2018-06-12] MEDS ORDERED: NICOTINE POLACRILEX 2 MG GUM BC PRN (11:08)
[2018-06-12] MEDS ORDERED: P-EPHED 60MG/TRIPROLIDI 2.5MG TABLET PO PRN (11:08)
[2018-06-12] MEDS ORDERED: chlordiazePOXIDE HCL 25 MG CAPSULE PO PRN (11:08)
[2018-06-12] MEDS ORDERED: guaiFENesin/D-METHORPHAN HB 10 ML UNIT-DOSE CUPS PO PRN (11:08)
[2018-06-12] MEDS ORDERED: ALBUTEROL SO4 8 GM HFA INHALER IH PRN (11:10)
--- NOTE | 2018-06-12 11:19 | PN ---
S Progress Note Note: Pt states she is not on meds for her DM, that because she lost so much weight, her sugar is just monitored and treated as needed
[2018-06-12] MEDS: chlordiazePOXIDE HCL 25 MG CAPSULE PO SCH ×3 (13:36→22:22)
[2018-06-12] MEDS: NICOTINE 14 MG/24 HOURS TOPICAL PATCH TD SCH (14:00)
[2018-06-12] MEDS: INSULIN SLIDING SCALE (NOVOLOG) 1 VIAL SQ SCH ×2 (19:13→23:10)
[2018-06-12] MEDS ORDERED: MELATONIN 5 MG TABLETS PO PRN (22:00)
[2018-06-12] MEDS: THIAMINE HCL 100 MG TABLET (FP) PO SCH (22:23)
[2018-06-13 01:51] LABS: URINE APPEARANCE SLCLOUDY; URINE BILIRUBIN NEGATIVE (<2.0 mg/dL); URINE COLOR YELLOW; URINE GLUCOSE (UA) NEGATIVE (NEGATIVE); URINE KETONE NEGATIVE (NEGATIVE); URINE LEUK ESTERASE 2+ (NEGATIVE); URINE NITRITE NEGATIVE (NEGATIVE); URINE PROTEIN NEGATIVE (NEGATIVE); URINE UROBILINOGEN NEGATIVE mg/dL (0.2-1.0)
[2018-06-13 01:59] LABS: EPI CELLS RARE /HPF (FEW); URINE BACTERIA RARE /hpf (NONE SEEN); URINE MUCUS RARE
[2018-06-13] MEDS: chlordiazePOXIDE HCL 25 MG CAPSULE PO SCH ×4 (06:31→22:16)
[2018-06-13] MEDS: INSULIN SLIDING SCALE (NOVOLOG) 1 VIAL SQ SCH ×4 (06:32→22:17)
--- NOTE | 2018-06-13 07:40 | CONSULT ---
[facility] Psychiatric Consult - Data Date of interview: 06/13/18 Admission source: [facility] Identifying data: This is a 62 years old female, single mother of three, living with family, in SSI support, with history of Schizoaffective disorder, Bipolar type, with hisotry of psychiatric hospitalizations, with a long history of addiction from Alcohol,m Crack and Nicotine, presents reporting withdrawal symptoms and seeking detox. Patient is known to this center and was last time here in January 2018 Substance Abuse History: Smoking history: Current every day smoker. Have you smoked in the past 12 months: Yes. Aproximately how many cigarettes per day: 10. Cigars Per Day: 0. Hx Chewing Tobacco Use: No. Initiated information on smoking cessation: Yes. 'Breaking Loose' booklet given: 06/12/18. - Substance & Tx. History. Hx Alcohol Use: Yes. Hx Substance Use: Yes. Substance Use Type : Alcohol, Cocaine. Hx Substance Use Treatment: Yes. - Substances Abused. Alcohol. Route: Oral. Frequency: 3-6 times per week. Amount used: 1 pint of E &J, and 3 24oz cans of beer. Age of first use: 21. Date of Last Use: . Crack. Route: Smoking. Frequency: 3-6 times per week. Amount used: $ 50. Age of first use: 26. Date of Last Use: 06/11/18 Medical History: Asth,a Weight loss history, DM-II, HepC+, L. knee injury history, head injury history. Psychiatric History: Patient suffers Schizoaffective disorder with most recent psychiatric admission on 2016 at [facility]. Reports currently stable on: Haldol 5mg poqd. Trazodonbe 100mg po qhs. Haldol Decanoate 100mg in /monthly , last injection on 05/24/18. Denies suicidal, homicidal history. Physical/Sexual Abuse/Trauma History: Denies Additional Comment: Haldol 5mg poqd. Trazodonbe 100mg po qhs. Haldol Decanoate 100mg in /monthly, last injection on 05/24/18 Mental Status Exam - Mental Status Exam Alert and Oriented to: Place, Person Cognitive Function: Fair Patient Appearance: Unkempt Mood: Anxious Affect: Mood Congruent Patient Behavior: Cooperative Speech Pattern: Appropriate Voice Loudness: Mildly Soft/Quiet Thought Process: Circumstantial, Goal Oriented Thought Disorder: Being Controlled Hallucinations: Denies Suicidal Ideation: Denies Homicidal Ideation: Denies Insight/Judgement: Fair Sleep: Difficulty falling asleep Appetite: Weight loss Muscle strength/Tone: Moderate Hypotonicity Gait/Station: Deferred Additional Comments: Haldol 5mg poqd. Trazodonbe 100mg po qhs. Haldol Decanoate 100mg in /monthly, last injection on 05/24/18 Psychiatric Findings - Problem List ([place] 1, 2,3) (1) Alcohol dependence, uncomplicated Current Visit: Yes Status: Acute (2) Arthritis of knee, left Current Visit: Yes Status: Chronic (3) Asthma Current Visit: Yes Status: Chronic Qualifiers: Asthma severity: mild intermittent Asthma complication type: uncomplicated (4) DM (diabetes mellitus) Current Visit: Yes Status: Chronic (5) Hx of hepatitis C Current Visit: Yes Status: Chronic (6) Nicotine dependence Current Visit: Yes Status: Chronic (7) Alcohol dependence Current Visit: No Status: Active (8) Bipolar disorder Current Visit: No Status: Acute (9) Fall Current Visit: No Status: Acute Qualifiers: Encounter type: initial encounter Qualified Code(s): W19.XXXA - Unspecified fall, initial encounter (10) Head injury Current Visit: No Status: Acute Qualifiers: Encounter type: initial encounter Qualified Code(s): S09.90XA - Unspecified injury of head, initial encounter (11) Weight loss Current Visit: No Status: Acute (12) Cocaine dependence Current Visit: No Status: Chronic (13) Incontinent of urine Current Visit: No Status: Chronic Qualifiers: Urinary Incontinence type: mixed stress and urge incontinence Qualified Code(s): N39.46 - Mixed incontinence (14) Schizoaffective disorder Current Visit: No Status: Chronic - Initial Treatment Plan Initial Treatment Plan: Haldol 5mg poqd. Trazodonbe 100mg po qhs. Haldol Decanoate 100mg in /monthly, last injection on 05/24/18
[2018-06-13] MEDS: HALOPERIDOL 5 MG TABLET (FP) PO SCH (10:16)
[2018-06-13] MEDS: NICOTINE 14 MG/24 HOURS TOPICAL PATCH TD SCH (10:16)
[2018-06-13] MEDS: PRENATAL VITAMINS W/ FOLIC ACID TABLET (FP) PO SCH (10:16)
--- NOTE | 2018-06-13 10:41 | EKG ---
Test Reason : Blood Pressure : / mmHG Vent. Rate : 069 BPM Atrial Rate : 069 BPM P-R Int : 150 ms QRS Dur : 088 ms QT Int : 422 ms P-R-T Axes : 059 053 024 degrees QTc Int : 452 ms NORMAL SINUS RHYTHM WITH SINUS ARRHYTHMIA NONSPECIFIC T WAVE ABNORMALITY ABNORMAL ECG WHEN COMPARED WITH ECG OF 10-JAN-2018 14:43, COMPARED TO EKG NO SIGNIFICANT CHANGE IS FOUND Confirmed by YAQUELIN CASTILLO, USHA ([id number]) on 06/13/2018 10:40:39 AM Referred By: Shasta Shell Confirmed By:USHA JAMISON MD
[2018-06-13 10:51] LABS: HEMOGLOBIN 12.5 GM/dL (10.7-15.3); MCH 31.2 pg (25.7-33.7); MCHC 33.9 g/dl (32.0-36.0); MEAN CELL VOLUME 91.8 fl (80-96); MEAN PLT VOLUME 10.1 fl (7.5-11.1); PLATELET COUNT 174 K/MM3 (134-434); RBC 4.03 M/mm3 (3.60-5.2); RDW 14.1 % (11.6-15.6)
--- NOTE | 2018-06-13 10:59 | PN ---
S CIWA - CIWA Score Nausea/Vomitin-Mild Nausea/No Vomiting Muscle Tremors: 3 Anxiety: 3 Agitation: 3 Paroxysmal Sweats: 1-Minimal Palms Moist Orientation: 1-Uncertain about Date Tacttile Disturbances: 1-Very Mild Itch/Numbness Auditory Disturbances: 0-None Visual Disturbances: 0-None Headache: 0-None Present CIWA-Ar Total Score: 13 BHS Progress Note (SOAP) Subjective: sweat tremor anxiety restlessness trouble sleep at night Objective: 06/13/18 11:01 Vital Signs Temperature 98.2 F 06/13/18 09:14 Pulse Rate 80 06/13/18 09:14 Respiratory Rate 18 06/13/18 09:14 Blood Pressure 102/78 06/13/18 09:14 O2 Sat by Pulse Oximetry (%) Laboratory Last Values WBC 4.0 K/mm3 (4.0-10.0) 06/13/18 07:40 RBC 4.03 M/mm3 (3.60-5.2) 06/13/18 07:40 Hgb 12.5 GM/dL (10.7-15.3) 06/13/18 07:40 Hct 37.0 % (32.4-45.2) 06/13/18 07:40 MCV 91.8 fl (80-96) 06/13/18 07:40 MCH 31.2 pg (25.7-33.7) 06/13/18 07:40 MCHC 33.9 g/dl (32.0-36.0) 06/13/18 07:40 RDW 14.1 % (11.6-15.6) 06/13/18 07:40 Plt Count 174 K/MM3 (134-434) D 06/13/18 07:40 MPV 10.1 fl (7.5-11.1) 06/13/18 07:40 POC Glucometer 98 UNITS (80-120) 06/13/18 05:59 Urine Color Yellow 06/12/18 23:00 Urine Appearance Slcloudy 06/12/18 23:00 Urine pH 6.0 (5.0-8.0) 06/12/18 23:00 Ur Specific [place] 1.015 (1.010-1.035) 06/12/18 23:00 Urine Protein Negative (NEGATIVE) 06/12/18 23:00 Urine Glucose (UA) Negative (NEGATIVE) 06/12/18 23:00 Urine Ketones Negative (NEGATIVE) 06/12/18 23:00 Urine Blood Negative (NEGATIVE) 06/12/18 23:00 Urine Nitrite Negative (NEGATIVE) 06/12/18 23:00 Urine Bilirubin Negative (<2.0 mg/dL) 06/12/18 23:00 Urine Urobilinogen Negative mg/dL (0.2-1.0) 06/12/18 23:00 Ur Leukocyte Esterase 2+ (NEGATIVE) H 06/12/18 23:00 Urine WBC (Auto) 3 /hpf (3-5) 06/12/18 23:00 Urine RBC (Auto) 1 /hpf (0-3) 06/12/18 23:00 Ur Epithelial Cells Rare /HPF (FEW) 06/12/18 23:00 Urine Bacteria Rare /hpf (NONE SEEN) 06/12/18 23:00 Urine Mucus Rare 06/12/18 23:00 RPR Titer Nonreactive (NONREACTIVE) 06/13/18 07:40 lab noted Assessment: 06/13/18 11:03 withdrawal sx repeat ua Plan: continue detox
[2018-06-13 11:08] LABS: ALBUMIN 2.9 g/dl (3.4-5.0); ALK PHOS 55 U/L (45-117); ANION GAP 9 MMOL/L (8-16); BILIRUBIN,TOTAL 0.6 mg/dL (0.2-1); BLOOD UREA NITROGEN 9 mg/dL (7-18); CALCIUM 8.3 mg/dL (8.5-10.1); CHLORIDE 108 mmol/L (98-107); CO2 25 mmol/L (21-32); CREATININE 0.7 mg/dL (0.55-1.3); GLUCOSE,RANDOM 97 mg/dL (74-106); POTASSIUM 4.2 mmol/L (3.5-5.1); SGOT/AST 124 U/L (15-37); SGPT/ALT 137 U/L (13-61); SODIUM 142 mmol/L (136-145); TOT PROT 6.3 g/dl (6.4-8.2)
[2018-06-13] MEDS ORDERED: INSULIN (NOVOLOG) ASPART 100 UNITS/ML 10ML VIAL ONE (11:54)
[2018-06-13] MEDS: traZODone HCL 100 MG TABLET (FP) PO SCH (22:16)
[2018-06-13] MEDS: THIAMINE HCL 100 MG TABLET (FP) PO SCH (22:17)
[2018-06-13] MEDS ORDERED: TRIMETHOBENZAMIDE HCL 200MG/2ML INJ IM ONE (23:06)
[2018-06-14] MEDS: chlordiazePOXIDE HCL 25 MG CAPSULE PO SCH (05:56)
--- NOTE | 2018-06-14 10:45 | PN ---
[facility] CIWA - CIWA Score Nausea/Vomitin-Mild Nausea/No Vomiting Muscle Tremors: 3 Anxiety: 1-Mildly Anxious Agitation: 2 Paroxysmal Sweats: 1-Minimal Palms Moist Orientation: 1-Uncertain about Date Tacttile Disturbances: 1-Very Mild Itch/Numbness Auditory Disturbances: 0-None Visual Disturbances: 0-None Headache: 1-Very Mild CIWA-Ar Total Score: 11 S Progress Note (SOAP) Subjective: reported chronic knees pain walk with cane at home sweat tremor anxiety restlessness Objective: 06/14/18 10:50 Vital Signs Temperature 98.1 F 06/14/18 09:33 Pulse Rate 98 H 06/14/18 09:33 Respiratory Rate 18 06/14/18 09:33 Blood Pressure 113/67 06/14/18 09:33 O2 Sat by Pulse Oximetry (%) Laboratory Last Values WBC 4.0 K/mm3 (4.0-10.0) 06/13/18 07:40 RBC 4.03 M/mm3 (3.60-5.2) 06/13/18 07:40 Hgb 12.5 GM/dL (10.7-15.3) 06/13/18 07:40 Hct 37.0 % (32.4-45.2) 06/13/18 07:40 MCV 91.8 fl (80-96) 06/13/18 07:40 MCH 31.2 pg (25.7-33.7) 06/13/18 07:40 MCHC 33.9 g/dl (32.0-36.0) 06/13/18 07:40 RDW 14.1 % (11.6-15.6) 06/13/18 07:40 Plt Count 174 K/MM3 (134-434) D 06/13/18 07:40 MPV 10.1 fl (7.5-11.1) 06/13/18 07:40 Sodium 142 mmol/L (136-145) 06/13/18 07:40 Potassium 4.2 mmol/L (3.5-5.1) 06/13/18 07:40 Chloride 108 mmol/L (98-107) H 06/13/18 07:40 Carbon Dioxide 25 mmol/L (21-32) 06/13/18 07:40 Anion Gap 9 MMOL/L (8-16) 06/13/18 07:40 BUN 9 mg/dL (7-18) 06/13/18 07:40 Creatinine 0.7 mg/dL (0.55-1.3) 06/13/18 07:40 Creat Clearance w eGFR > 60 (>60) 06/13/18 07:40 POC Glucometer 128 UNITS (80-120) 06/14/18 09:14 Random Glucose 97 mg/dL (74-106) 06/13/18 07:40 Calcium 8.3 mg/dL (8.5-10.1) L 06/13/18 07:40 Total Bilirubin 0.6 mg/dL (0.2-1) 06/13/18 07:40 AST 124 U/L (15-37) H 06/13/18 07:40 ALT 137 U/L (13-61) H 06/13/18 07:40 Alkaline Phosphatase 55 U/L (45-117) 06/13/18 07:40 Total Protein 6.3 g/dl (6.4-8.2) L 06/13/18 07:40 Albumin 2.9 g/dl (3.4-5.0) L 06/13/18 07:40 Urine Color Yellow 06/12/18 23:00 Urine Appearance Slcloudy 06/12/18 23:00 Urine pH 6.0 (5.0-8.0) 06/12/18 23:00 Ur Specific [place] 1.015 (1.010-1.035) 06/12/18 23:00 Urine Protein Negative (NEGATIVE) 06/12/18 23:00 Urine Glucose (UA) Negative (NEGATIVE) 06/12/18 23:00 Urine Ketones Negative (NEGATIVE) 06/12/18 23:00 Urine Blood Negative (NEGATIVE) 06/12/18 23:00 Urine Nitrite Negative (NEGATIVE) 06/12/18 23:00 Urine Bilirubin Negative (<2.0 mg/dL) 06/12/18 23:00 Urine Urobilinogen Negative mg/dL (0.2-1.0) 06/12/18 23:00 Ur Leukocyte Esterase 2+ (NEGATIVE) H 06/12/18 23:00 Urine WBC (Auto) 3 /hpf (3-5) 06/12/18 23:00 Urine RBC (Auto) 1 /hpf (0-3) 06/12/18 23:00 Ur Epithelial Cells Rare /HPF (FEW) 06/12/18 23:00 Urine Bacteria Rare /hpf (NONE SEEN) 06/12/18 23:00 Urine Mucus Rare 06/12/18 23:00 RPR Titer Nonreactive (NONREACTIVE) 06/13/18 07:40 lab noted repeat ast 06/14/18 10:53 uti repat ua 06/14/18 10:55 Assessment: 06/14/18 10:54 withdrawal sx 06/14/18 10:55 uti Plan: continue detox bactrim ds cane ambulation
[2018-06-14] MEDS: HALOPERIDOL 5 MG TABLET (FP) PO SCH (11:35)
[2018-06-14] MEDS: chlordiazePOXIDE 5 MG CAPSULE PO SCH ×3 (11:35→23:14)
[2018-06-14] MEDS: PRENATAL VITAMINS W/ FOLIC ACID TABLET (FP) PO SCH (11:40)
[2018-06-14] MEDS: SULFAMETHOXAZOLE/TRIMETHOPRIM 800MG/160MG D.S. TABLET PO SCH ×2 (11:40→23:39)
[2018-06-14] MEDS: INSULIN SLIDING SCALE (NOVOLOG) 1 VIAL SQ SCH ×3 (12:31→22:55)
[2018-06-14] MEDS: NICOTINE 14 MG/24 HOURS TOPICAL PATCH TD SCH (12:32)
[2018-06-14 15:22] LABS: URINE APPEARANCE CLEAR; URINE BILIRUBIN NEGATIVE (<2.0 mg/dL); URINE COLOR LTYELLOW; URINE GLUCOSE (UA) NEGATIVE (NEGATIVE); URINE KETONE NEGATIVE (NEGATIVE); URINE LEUK ESTERASE NEGATIVE (NEGATIVE); URINE NITRITE NEGATIVE (NEGATIVE); URINE PROTEIN NEGATIVE (NEGATIVE); URINE UROBILINOGEN NEGATIVE mg/dL (0.2-1.0)
[2018-06-14] MEDS: traZODone HCL 100 MG TABLET (FP) PO SCH (23:14)
[2018-06-14] MEDS: THIAMINE HCL 100 MG TABLET (FP) PO SCH (23:16)
[2018-06-15] MEDS: chlordiazePOXIDE 5 MG CAPSULE PO SCH (05:26)
[2018-06-15] MEDS: INSULIN SLIDING SCALE (NOVOLOG) 1 VIAL SQ SCH ×4 (06:10→22:26)
[2018-06-15] MEDS: SULFAMETHOXAZOLE/TRIMETHOPRIM 800MG/160MG D.S. TABLET PO SCH ×2 (10:36→22:26)
[2018-06-15] MEDS: PRENATAL VITAMINS W/ FOLIC ACID TABLET (FP) PO SCH (10:36)
[2018-06-15] MEDS: NICOTINE 14 MG/24 HOURS TOPICAL PATCH TD SCH (10:36)
[2018-06-15] MEDS: HALOPERIDOL 5 MG TABLET (FP) PO SCH (10:37)
[2018-06-15] MEDS: chlordiazePOXIDE HCL 10 MG CAPSULE PO SCH ×3 (11:32→22:26)
--- NOTE | 2018-06-15 11:36 | PN ---
BHS Progress Note (SOAP) Subjective: feeling better no tremor less sweat no gi distress social with peers in day room Objective: 06/15/18 11:35 Vital Signs Temperature 99.1 F 06/15/18 07:55 Pulse Rate 94 H 06/15/18 07:55 Respiratory Rate 18 06/15/18 07:55 Blood Pressure 87/60 L 06/15/18 07:55 O2 Sat by Pulse Oximetry (%) Laboratory Last Values WBC 4.0 K/mm3 (4.0-10.0) 06/13/18 07:40 RBC 4.03 M/mm3 (3.60-5.2) 06/13/18 07:40 Hgb 12.5 GM/dL (10.7-15.3) 06/13/18 07:40 Hct 37.0 % (32.4-45.2) 06/13/18 07:40 MCV 91.8 fl (80-96) 06/13/18 07:40 MCH 31.2 pg (25.7-33.7) 06/13/18 07:40 MCHC 33.9 g/dl (32.0-36.0) 06/13/18 07:40 RDW 14.1 % (11.6-15.6) 06/13/18 07:40 Plt Count 174 K/MM3 (134-434) D 06/13/18 07:40 MPV 10.1 fl (7.5-11.1) 06/13/18 07:40 Sodium 142 mmol/L (136-145) 06/13/18 07:40 Potassium 4.2 mmol/L (3.5-5.1) 06/13/18 07:40 Chloride 108 mmol/L (98-107) H 06/13/18 07:40 Carbon Dioxide 25 mmol/L (21-32) 06/13/18 07:40 Anion Gap 9 MMOL/L (8-16) 06/13/18 07:40 BUN 9 mg/dL (7-18) 06/13/18 07:40 Creatinine 0.7 mg/dL (0.55-1.3) 06/13/18 07:40 Creat Clearance w eGFR > 60 (>60) 06/13/18 07:40 POC Glucometer 151 UNITS (80-120) 06/15/18 11:09 Random Glucose 97 mg/dL (74-106) 06/13/18 07:40 Calcium 8.3 mg/dL (8.5-10.1) L 06/13/18 07:40 Total Bilirubin 0.6 mg/dL (0.2-1) 06/13/18 07:40 AST 85 U/L (15-37) H 06/15/18 07:00 ALT 137 U/L (13-61) H 06/13/18 07:40 Alkaline Phosphatase 55 U/L (45-117) 06/13/18 07:40 Total Protein 6.3 g/dl (6.4-8.2) L 06/13/18 07:40 Albumin 2.9 g/dl (3.4-5.0) L 06/13/18 07:40 Urine Color Ltyellow 06/14/18 11:10 Urine Appearance Clear 06/14/18 11:10 Urine pH 7.0 (5.0-8.0) 06/14/18 11:10 Ur Specific [place] 1.016 (1.010-1.035) 06/14/18 11:10 Urine Protein Negative (NEGATIVE) 06/14/18 11:10 Urine Glucose (UA) Negative (NEGATIVE) 06/14/18 11:10 Urine Ketones Negative (NEGATIVE) 06/14/18 11:10 Urine Blood Negative (NEGATIVE) 06/14/18 11:10 Urine Nitrite Negative (NEGATIVE) 06/14/18 11:10 Urine Bilirubin Negative (<2.0 mg/dL) 06/14/18 11:10 Urine Urobilinogen Negative mg/dL (0.2-1.0) 06/14/18 11:10 Ur Leukocyte Esterase Negative (NEGATIVE) 06/14/18 11:10 Urine WBC (Auto) 3 /hpf (3-5) 06/12/18 23:00 Urine RBC (Auto) 1 /hpf (0-3) 06/12/18 23:00 Ur Epithelial Cells Rare /HPF (FEW) 06/12/18 23:00 Urine Bacteria Rare /hpf (NONE SEEN) 06/12/18 23:00 Urine Mucus Rare 06/12/18 23:00 RPR Titer Nonreactive (NONREACTIVE) 06/13/18 07:40 lab noted Assessment: 06/15/18 11:35 mild withdrawal sx Plan: medically supervised detox
[2018-06-15] MEDS ORDERED: INSULIN (NOVOLOG) ASPART 100 UNITS/ML 10ML VIAL ONE (22:25)
[2018-06-15] MEDS: THIAMINE HCL 100 MG TABLET (FP) PO SCH (22:26)
[2018-06-15] MEDS: traZODone HCL 100 MG TABLET (FP) PO SCH (23:19)
[2018-06-16] MEDS: chlordiazePOXIDE HCL 10 MG CAPSULE PO SCH (05:36)
[2018-06-16 09:28] VITALS: BP 103/75; PULSE 97; TEMP 97.5
[2018-06-16] MEDS: PRENATAL VITAMINS W/ FOLIC ACID TABLET (FP) PO SCH (10:32)
[2018-06-16] MEDS: SULFAMETHOXAZOLE/TRIMETHOPRIM 800MG/160MG D.S. TABLET PO SCH (10:32)
[2018-06-16] MEDS: HALOPERIDOL 5 MG TABLET (FP) PO SCH (10:32)
[2018-06-16] MEDS: NICOTINE 14 MG/24 HOURS TOPICAL PATCH TD SCH (10:33)
--- NOTE | 2018-06-16 10:57 | DS ---
[facility] Detox Discharge Summary Admission Date: 06/12/18 Discharge Date: 06/16/18 - History Present History: Alcohol Dependence Additional Comments: 62 years old female admitted on 06/12/18 for alcohol withdrawal sx completed alcohol detox regimen tolerated well denies alcohol withdrawal sx alert oriented x 3 no acute distress [facility] - Physical Exam Results Vital Signs: Vital Signs Temperature 97.5 F L 06/16/18 09:28 Pulse Rate 97 H 06/16/18 09:28 Respiratory Rate 18 06/16/18 09:28 Blood Pressure 103/75 06/16/18 09:28 O2 Sat by Pulse Oximetry (%) Pertinent Admission Physical Exam Findings: alcohol withdrawal sx Vital Signs Temperature 97.5 F L 06/16/18 09:28 Pulse Rate 97 H 06/16/18 09:28 Respiratory Rate 18 06/16/18 09:28 Blood Pressure 103/75 06/16/18 09:28 O2 Sat by Pulse Oximetry (%) Laboratory Last Values WBC 4.0 K/mm3 (4.0-10.0) 06/13/18 07:40 RBC 4.03 M/mm3 (3.60-5.2) 06/13/18 07:40 Hgb 12.5 GM/dL (10.7-15.3) 06/13/18 07:40 Hct 37.0 % (32.4-45.2) 06/13/18 07:40 MCV 91.8 fl (80-96) 06/13/18 07:40 MCH 31.2 pg (25.7-33.7) 06/13/18 07:40 MCHC 33.9 g/dl (32.0-36.0) 06/13/18 07:40 RDW 14.1 % (11.6-15.6) 06/13/18 07:40 Plt Count 174 K/MM3 (134-434) D 06/13/18 07:40 MPV 10.1 fl (7.5-11.1) 06/13/18 07:40 Sodium 142 mmol/L (136-145) 06/13/18 07:40 Potassium 4.2 mmol/L (3.5-5.1) 06/13/18 07:40 Chloride 108 mmol/L (98-107) H 06/13/18 07:40 Carbon Dioxide 25 mmol/L (21-32) 06/13/18 07:40 Anion Gap 9 MMOL/L (8-16) 06/13/18 07:40 BUN 9 mg/dL (7-18) 06/13/18 07:40 Creatinine 0.7 mg/dL (0.55-1.3) 06/13/18 07:40 Creat Clearance w eGFR > 60 (>60) 06/13/18 07:40 POC Glucometer 88 UNITS (80-120) 06/16/18 05:17 Random Glucose 97 mg/dL (74-106) 06/13/18 07:40 Calcium 8.3 mg/dL (8.5-10.1) L 06/13/18 07:40 Total Bilirubin 0.6 mg/dL (0.2-1) 06/13/18 07:40 AST 85 U/L (15-37) H 06/15/18 07:00 ALT 137 U/L (13-61) H 06/13/18 07:40 Alkaline Phosphatase 55 U/L (45-117) 06/13/18 07:40 Total Protein 6.3 g/dl (6.4-8.2) L 06/13/18 07:40 Albumin 2.9 g/dl (3.4-5.0) L 06/13/18 07:40 Urine Color Ltyellow 06/14/18 11:10 Urine Appearance Clear 06/14/18 11:10 Urine pH 7.0 (5.0-8.0) 06/14/18 11:10 Ur Specific [place] 1.016 (1.010-1.035) 06/14/18 11:10 Urine Protein Negative (NEGATIVE) 06/14/18 11:10 Urine Glucose (UA) Negative (NEGATIVE) 06/14/18 11:10 Urine Ketones Negative (NEGATIVE) 06/14/18 11:10 Urine Blood Negative (NEGATIVE) 06/14/18 11:10 Urine Nitrite Negative (NEGATIVE) 06/14/18 11:10 Urine Bilirubin Negative (<2.0 mg/dL) 06/14/18 11:10 Urine Urobilinogen Negative mg/dL (0.2-1.0) 06/14/18 11:10 Ur Leukocyte Esterase Negative (NEGATIVE) 06/14/18 11:10 Urine WBC (Auto) 3 /hpf (3-5) 06/12/18 23:00 Urine RBC (Auto) 1 /hpf (0-3) 06/12/18 23:00 Ur Epithelial Cells Rare /HPF (FEW) 06/12/18 23:00 Urine Bacteria Rare /hpf (NONE SEEN) 06/12/18 23:00 Urine Mucus Rare 06/12/18 23:00 RPR Titer Nonreactive (NONREACTIVE) 06/13/18 07:40 lab noted - Treatment Hospital Course: Detox Protocol Followed, Detoxed Safely, Responded well, Discharged Condition Good, Rehab Referral Accepted Patient has Accepted a Rehab Referral to: [facility] - Medication Discharge Medications: Ambulatory Orders Haloperidol Decanoate [Haldol Decanoate 100] 100 mg IM MONTHLY 06/02/16 Insulin Sliding Scale [Novolog Vial Sliding Scale -] 0 units SQ DAILY 01/10/18 Haloperidol [Haldol -] 5 mg PO DAILY #30 tablet 06/13/18 traZODone HCL [Desyrel -] 100 mg PO HS #30 tablet 06/13/18 Albuterol Sulfate Inhaler - [Ventolin HFA Inhaler -] 2 puff IH Q4H PRN #1 inhaler 06/15/18 - Diagnosis (1) Alcohol dependence, uncomplicated Current Visit: Yes Status: Acute (2) Use of cane as ambulatory aid Current Visit: Yes Status: Chronic (3) Asthma Current Visit: Yes Status: Chronic Qualifiers: Asthma severity: mild Asthma persistence: intermittent Asthma complication type: with status asthmaticus Qualified Code(s): J45.22 - Mild intermittent asthma with status asthmaticus (4) DM (diabetes mellitus) Current Visit: Yes Status: Chronic Qualifiers: Diabetes mellitus type: type 2 Diabetes mellitus bed bug exterminator insulin use: unspecified bed bug exterminator insulin use status Diabetes mellitus complication status : with unspecified complications Qualified Code(s): E11.8 - Type 2 diabetes mellitus with unspecified complications (5) Hx of hepatitis C Current Visit: Yes Status: Chronic (6) Weight loss Current Visit: Yes Status: Acute (7) Schizoaffective disorder Current Visit: Yes Status: Suspected - AMA Did Patient Leave Against Medical Advice: No
== END 2018-06-16 11:02 | disposition home or self-care (01) | DRG 774 ==
LOC: YASAS 09:14 → Y6N 11:21
PROC: HZ2ZZZZ Detoxification Services for Substance Abuse Treatment (ICD-10-PCS; principal; 2018-06-12)
DX: F10.230 Alcohol dependence with withdrawal, uncomplicated (principal); F14.20 Cocaine dependence, uncomplicated; F17.210 Nicotine dependence, cigarettes, uncomplicated; F31.9 Bipolar disorder, unspecified; F25.9 Schizoaffective disorder, unspecified; J45.22 Mild intermittent asthma with status asthmaticus; E11.8 Type 2 diabetes mellitus with unspecified complications; B18.2 Chronic viral hepatitis C; N39.0 Urinary tract infection, site not specified; N39.46 Mixed incontinence; M13.862 Other specified arthritis, left knee; R29.6 Repeated falls; R29.2 Abnormal reflex; Z99.89 Dependence on other enabling machines and devices; Z90.710 Acquired absence of both cervix and uterus; Z86.69 Personal history of other diseases of the nervous system and sense organs; Z87.42 Personal history of other diseases of the female genital tract
CPT/HCPCS: 36415; 80053; 81003; 81015; 82962; 84450; 85027; 86593; 93005; 93010